=== PATIENT | male | born 1975 | race African-American/Black ===

== ENCOUNTER 2024-01-18 16:27 | Emergency (ER) | payer MEDICAID ==
[~2024-01-18] VITALS: Ht 175.3 cm; Wt 68.0 kg
[2024-01-18 16:54] VITALS: O2SAT 98
[2024-01-18 17:24] VITALS: BP 137/84; PULSE 82; RESP 16; TEMP 98.4; O2SAT 100
[2024-01-18] MEDS ORDERED: IBUP-1523 MT (20:08)
[2024-01-18] MEDS ORDERED: TOPUD MT (20:08)
== END 2024-01-18 20:00 | disposition home or self-care (01) ==
LOC: ER 16:27
DX: M25.562 Pain in left knee (principal)
CPT/HCPCS: 73560; 99283; Z7610; L1830